=== PATIENT | male | born 1950 | race Caucasian/White ===

== ENCOUNTER → 2018-04-22 | Outpatient (REF) | payer MEDICARE, OTHER ==
[2018-04-24 10:39] LABS: ALBUMIN 4.01 GM/DL (3.29-5.55); ALBUMIN % 57.3 % (55.8-66.1); ALPHA-1-GLOBULIN % 3.9 % (2.9-4.9); ALPHA-1-GLOBULINS 0.27 GM/DL (0.17-0.41); ALPHA-2-GLOBULINS 0.69 GM/DL (0.42-0.99); ALPHA-2-GLOBULINS % 9.9 % (7.1-11.8); BETA-1-GLOBULINS 0.48 GM/DL (0.28-0.60); BETA-1-GLOBULINS % 6.9 % (4.7-7.2); BETA-2-GLOBULINS 0.41 GM/DL (0.19-0.55); BETA-2-GLOBULINS % 5.9 % (3.2-6.5); GAMMA GLOBULIN % 16.1 % (11.1-18.8); GAMMA GLOBULINS 1.13 GM/DL (0.65-1.58)
[2018-04-24 14:51] LABS: UPEP INTERPRETATION NO M-SPIKE NOTED; URINE VOLUME RANDOM ML
[2018-04-25 00:30] LABS: FREE KAPPA LIGHT CHAINS SERUM 25.1 mg/L (3.3-19.4); FREE LAMBDA LIGHT CHAINS SERUM 25.2 mg/L (5.7-26.3)
== END ==
LOC: M LAB REF 17:23
DX: N18.2 Chronic kidney disease, stage 2 (mild) (principal); R80.9 Proteinuria, unspecified
CPT/HCPCS: 84165

== ENCOUNTER 2018-07-04 08:47 | Day surgery (SDC) | payer MEDICARE, OTHER ==
[~2018-07-04] VITALS: Ht 175.3 cm; Wt 75.3 kg
[~2018-07-04 08:47] MED LIST: ALIG4CAP PO; FINA5TAB2 PO; FLUO20CA8 PO; LIDOCAINE 1% MDV 20ML VIAL SQ PRN; LISI-542 PO; LR 1,000 ML IV ONE; METF500T13 PO; PRAV40TA2 PO
[2018-07-04] MEDS ORDERED: LIDOCAINE 2% INJ 100 MG/5 ML SDV (FOR ANES.) As Ordered ONE (08:51)
[2018-07-04] MEDS ORDERED: MIDAZOLAM INJ 2 MG/2 ML VIAL (J2250) As Ordered ONE (08:51)
[2018-07-04] MEDS ORDERED: ONDANSETRON 4MG/2ML VIAL (J2405) As Ordered ONE (08:51)
[2018-07-04] MEDS ORDERED: dexameTHASONE 4 MG/ML 1ML VIAL (J1100) As Ordered ONE ×2 (08:51→09:39)
[2018-07-04] MEDS ORDERED: PROPOFOL 200 MG/20 ML VIAL As Ordered ONE ×3 (08:51→11:11)
[2018-07-04] MEDS ORDERED: fentaNYL 100 MCG/2 ML INJECTION (J3010) As Ordered ONE (08:52)
[2018-07-04] MEDS ORDERED: BACITRACIN PWD 50,000 UNITS VIAL As Ordered ONE (09:39)
[2018-07-04] MEDS ORDERED: LIDOCAINE 2% MDV 20 ML VIAL As Ordered ONE (09:39)
[2018-07-04] MEDS ORDERED: BUPIVACAINE HCL 0.5% 30 ML VIAL As Ordered ONE (09:39)
[2018-07-04] MEDS ORDERED: NEOSPORIN GU IRRIG 20 ML VIAL As Ordered ONE (09:40)
[2018-07-04] MEDS ORDERED: ePHEDrine SULFATE 25 MG/5 ML(5MG/ML) SYRINGE As Ordered ONE (10:21)
[2018-07-04 12:00] VITALS: BP 139/65
--- NOTE | 2018-07-04 13:14 | REP ---
PORTABLE RIGHT FOOT THREE VIEWS: HISTORY: Arthroplasty. The patient is status-post resection of the base of the first proximal phalange. The patient is status-post osteotomy of the head of the second metatarsal. A metal pin is present. The patient is status-post arthroplasty of the second digit. A mental pin traverses the proximal and distal interphalangeal joint spaces. There is no acute fracture or dislocation. The joint spaces are normal in appearance. IMPRESSION: Postoperative change as described above. There is anatomic alignment. Electronically Signed by Sean Cerrato MD 07/04/2018 01:20 P
--- NOTE | 2018-07-07 15:04 | RO ---
DATE OF PROCEDURE: 07/04/2018 PREOPERATIVE DIAGNOSIS: Hammertoe deformity 2nd toe right foot, long 2nd metatarsal right foot, plantar plate disruption 2nd metatarsal phalangeal joint right foot. POSTOPERATIVE DIAGNOSIS: Hammertoe deformity 2nd toe right foot, long 2nd metatarsal right foot, plantar plate disruption 2nd metatarsal phalangeal joint right foot. PROCEDURE: 1. PROXIMAL INTERPHALANGEAL JOINT FUSION 2ND TOE RIGHT FOOT: 2. SHORTENING 2ND METATARSAL OSTEOTOMY WITH INTERNAL SCREW FIXATION 2 MM X 13 MM RIGHT FOOT: 3. Repair plantar plate 2nd Metatarsal phalangeal joint right foot SURGEON: Dr. Dmitriy Davenport DPM PAINTINGS RESTORER: None. ANESTHESIA: Local monitored anesthetic care. IRRIGATION Dilate Bacitracin, neomycin and polymyxin B solution. HARDWARE UTILIZED: Arthrex snap off 2 mm x 13 mm screw. DESCRIPTION OF OPERATION: On 07/04/2018 this 67-year-old male was taken from his hospital room to the operating room, placed on the operating room stable in the supine position. Following the induction of IV sedation local and regional anesthesia, the right lower extremity was prepped and draped in the usual aseptic manner. Sterile draping was completed and the patient extremity was returned to the operative table and the following procedure was performed: PROXIMAL INTERPHALANGEAL JOINT FUSION 2ND TOE RIGHT FOOT: Attention was directed to the patient's 2nd toe of the right foot where there is noted to be a medially deviated 2nd toe with a dorsally dislocated 2nd metatarsal phalangeal joint. At this time an incision was placed from the 2nd metatarsal phalangeal joint distally to the proximal interphalangeal joint. Dissection was carried down in the plane. All neurovascular structures encountered were electrocoagulated. The transverse tenotomy and capsulotomy was performed of the extensor tendon. The extensor expansion and hardware was then released. Medical and lateral collateral ligaments were released and an osteotomy was performed at the level of the anatomical neck of the proximal phalanx from dorsal to plantar and medial to lateral and through and through. Cartilage from the base of the middle phalanx was then osteotomized from dorsal to plantar. The following procedure was then performed: SHORTENING 2ND METATARSAL OSTEOTOMY WITH INTERNAL SCREW FIXATION 2 MM X 13 MM RIGHT FOOT: The incision was then crossed the metatarsal and phalangeal joint at a 45 degree angle and then straightened to extend down to the neck and shaft of the 2nd metatarsal. Dissection was then carried down. Extensor expansion and hardware was then released proximal to the metatarsal phalangeal joint. Transverse capsulotomy was performed to the level of the metatarsal phalangeal joint utilizing McGlamry elevator. The plantar plate was released. A Madison osteotomy was then performed shortening the metatarsal. This was temporarily held in a proximal direction with a Steinmann pin. The plantar plate was noted to be torn. The tear was then completed and utilizing FiberWire with a scorpion needle andrea the plantar plate had two sutures placed across it medially and laterally. Utilizing a K-wire a tunnel was created on the medial and lateral surfaces of the proximal phalanx and these were pulled through the wound. The wire temporarily distracting the metatarsal was then removed and the metatarsal was shortened 5 mm and then fixated with a 2 mm x 13 mm Arthrex snap off screw. Redundant cortical spike was then trimmed. The wound was flushed with copious amount of dilute Bacitracin, neomycin and polymyxin B solution. The plantar plate was tightened by pulling the sutures through the osseous tunnels through the phalanx and the toe was held in a plantar and lateral direction and then the sutures were tightened on the dorsal aspect of the phalanx. A 0.045 K-wire was then driven across the middle phalanx taking care not to extend into the Arthrex suture. The lateral capsule was then tightened on the latera surface of the 2nd metatarsal phalangeal joint. This was not repaired on the medial side since the toe was deviated in that direction. The extensor tendon was repaired with 4-0 Braided nylon suture with a 4 stranded calcified repair. This was additionally reinforced with peripheral stitch of 4-0 braided Nylon. Subcutaneous tissues were copated and maintained utilizing 4-0 Monocryl in a simple interrupted type fashion. Skin incision was copated and maintained utilizing 4-0 Prolene in a simple interrupted and horizontal mattress type fashion. Attention was then directed to bandaging where sterile compressive bandage was applied consisting of adaptic 4 x 4's, splints, Toni, Kerlix and Coban. Ankle pneumatic tourniquet was rapidly deflated and instantaneous capillary filling time was noted in digit in 1-5 of the patient right foot. Patient after having tolerated the surgical procedure well was taken to the OR to the recovery room for further monitoring by anesthesia department. All surgical specimens were removed and sent to pathology for gross microscopic examination. Postoperative instructions were given upon discharge. YOBANI
== END 2018-07-04 12:52 | disposition home or self-care (01) ==
LOC: M SDC 08:47
PROVIDERS: ATTEND Podiatrist
DX: M20.41 Other hammer toe(s) (acquired), right foot (principal); M79.671 Pain in right foot; I10 Essential (primary) hypertension; E78.5 Hyperlipidemia, unspecified; E11.9 Type 2 diabetes mellitus without complications; F41.9 Anxiety disorder, unspecified; Z79.84 Long term (current) use of oral hypoglycemic drugs; Z79.899 Other long term (current) drug therapy; Z87.891 Personal history of nicotine dependence
CPT/HCPCS: 28200; 28285; 28308; 73630; 88300; 97116; C1713; J0690; J1100; J2250; J2405; J3010

== ENCOUNTER → 2019-04-27 | Outpatient (REF) | payer MEDICARE, OTHER ==
[~2019-04-27] MED LIST changes: +FLUO20CA20 PO; -FLUO20CA8 PO; -LIDOCAINE 1% MDV 20ML VIAL SQ PRN; -LR 1,000 ML IV ONE
== END ==
LOC: M LAB REF 13:27
PROVIDERS: ATTEND Internal Medicine Nephrology
DX: N18.2 Chronic kidney disease, stage 2 (mild) (principal); E11.22 Type 2 diabetes mellitus with diabetic chronic kidney disease; R80.9 Proteinuria, unspecified

== ENCOUNTER → 2020-05-16 | Outpatient (CLI) | payer MEDICARE, OTHER ==
--- NOTE | 2020-05-16 14:22 | REP ---
INDICATION: CKD III A BEGIN PROSTATE W/ LOWER URINARY TRACT SY. COMPARISON: Comparison study December 28, 2014.. TECHNIQUE: Transabdominal scanning. FINDINGS: Urine filled bladder samano are smooth. Emptying ureteral jets are observed from both ureters on color Doppler interrogation of the bladder lumen. No extravesical lesion is seen. No bladder mass lesion is observed. Prevoid bladder volume is calculated at 216 mL. A 14 mL, 6%, postvoid residual is observed. Prostate is mildly prominent measuring 3.5 x 2.9 x 4.3 cm on transabdominal scanning. Calculated glandular volume 22.8 mL. IMPRESSION: Minimally enlarged prostate. Otherwise negative bladder sonography. <Electronically signed by Luis Hale > 05/16/20 [id number]
--- NOTE | 2020-05-16 14:23 | REP ---
INDICATION: CKD III A BEGIN PROSTATE W/ LOWER URINARY TRACT SY. COMPARISON: Comparison study December 28, 2014.. TECHNIQUE: Bilateral renal sonography. FINDINGS: . Renal cortical echogenicity pattern is normal bilaterally and contours are smooth. There is no evidence of hydronephrosis, cyst, mass, or calculus in either kidney. The right kidney measures 10.1 x 4.1 x 4.5 cm. Left renal dimensions are 10.8 x 4.2 x 4.9 cm. IMPRESSION: Unremarkable bilateral renal sonography.. <Electronically signed by Luis Hale > 05/16/20 [id number]
== END ==
LOC: M RAD 13:23
PROVIDERS: ATTEND Internal Medicine Nephrology
DX: N18.31 Chronic kidney disease, stage 3a (principal); N40.1 Benign prostatic hyperplasia with lower urinary tract symptoms

== ENCOUNTER → 2021-02-02 | Outpatient (REF) | payer MEDICARE, OTHER ==
[~2021-02-02] MED LIST changes: -LISI-542 PO; +LISI-898 PO
== END ==
LOC: M LAB REF 12:57
PROVIDERS: ATTEND Internal Medicine Nephrology
DX: N18.31 Chronic kidney disease, stage 3a (principal); E11.22 Type 2 diabetes mellitus with diabetic chronic kidney disease; R80.9 Proteinuria, unspecified

== ENCOUNTER → 2023-02-05 | Outpatient (REF) | payer MEDICARE, OTHER ==
[~2023-02-05] MED LIST changes: +AMLO1TAB24; +AMLO1TAB25; +ATOR80TA59; +FLUO-96 PO; -FLUO20CA20 PO; +FLUO20CA22; +HYDR-3490; +JARD1TAB; -LISI-898 PO; +LISI5TAB11 PO; +NOXI1TAB PO; +SILD25TA2
[2023-02-05 19:41] LABS: TOTAL PROTEIN,RANDOM URINE 37.2 MG/DL (0.0-14.0)
[2023-02-05 19:43] LABS: CREATININE,RANDOM URINE 70.2 MG/DL
== END ==
LOC: M LAB REF 17:44
PROVIDERS: ATTEND Nurse Practitioner Family
DX: R80.1 Persistent proteinuria, unspecified (principal)

== ENCOUNTER → 2024-02-21 | Outpatient (REF) | payer MEDICARE, OTHER ==
[~2024-02-21] MED LIST changes: +FLUO-365; -FLUO20CA22
[2024-02-21 17:54] LABS: TOTAL PROTEIN,RANDOM URINE 27.2 MG/DL (0.0-14.0)
[2024-02-21 17:59] LABS: CREATININE,RANDOM URINE 41.8 MG/DL
== END ==
LOC: M LAB REF 16:50
PROVIDERS: ATTEND Nurse Practitioner Family
DX: R80.1 Persistent proteinuria, unspecified (principal)

== ENCOUNTER → 2024-09-14 | Outpatient (CLI) | payer OTHER ==
[~2024-09-14] MED LIST changes: -ALIG4CAP PO; +ALIG4CAP3 PO
== END ==
LOC: M RAD 14:08
PROVIDERS: ATTEND Nurse Practitioner Family
DX: N18.31 Chronic kidney disease, stage 3a (principal)